=== PATIENT | male | born 1990 | race Two or more races ===

== ENCOUNTER 2016-11-18 16:28 | Emergency (ER) | payer OTHER ==
[~2016-11-18] VITALS: Ht 165.1 cm; Wt 67.1 kg
[2016-11-18 17:13] VITALS: BP 145/95
[2016-11-20 10:46] LABS: Hepatitis B Surface Antibody Positive
== END 2016-11-18 18:20 | disposition home or self-care (01) ==
LOC: ER 16:37
DX: Z77.21 Contact with and (suspected) exposure to potentially hazardous body fluids (principal)
CPT/HCPCS: 36415; 86703; 86706; 86803; 87340